=== PATIENT | female | born 1995 | race Two or more races ===

== ENCOUNTER 2024-08-10 03:49 | Emergency (ER) | payer MEDICAID, SELFPAY ==
[2024-08-10 03:50] VITALS: BMI 30.7
[2024-08-10 04:07] VITALS: BP 129/58; PULSE 70; RESP 18; TEMP 36.4; O2SAT 100
[2024-08-10] MEDS: ONDANSETRON INJ 2 MG/ML INJ 2 ML 4 MG IM (04:57)
--- NOTE | 2024-08-10 05:12 | PD.EDNV ---
Nausea/Vomit./Diarrhea-RME/HPI General Chief complaint: Abdominal Pain Stated complaint: EOTH/ VOMITING Time Seen by Provider: 08/10/24 04:19 Arrival date/time: 08/10/24 03:49 28F with no significant PMH presents to ED with N/V after drinking a lot of alcohol, most of which she threw up according to her and sister. Limitations: no limitations Related Data Allergies Allergy/AdvReac Type Severity Reaction Status Date / Time No Known Allergies Allergy Verified 08/10/24 03:50 Review of Systems Review of Systems Systems Reviewed: All systems reviewed, normal except as documented Constitutional Constitutional: Reports system reviewed and no additional complaints, except as documented, Denies fever(s) and Denies headache(s) ENT Ears, Nose, Mouth, and Throat: Denies disequilibrium and Denies headache(s) Cardiovascular Cardiovascular: Reports system reviewed and no additional complaints, except as documented, Denies chest pain and Denies dyspnea Respiratory Respiratory: Reports system reviewed and no additional complaints, except as documented, Denies cough and Denies dyspnea Gastrointestinal Gastrointestinal: Reports system reviewed and no additional complaints, except as documented, Reports as per HPI, Denies abdominal pain, Reports nausea and Reports vomiting Neurologic Neurologic: Reports system reviewed and no additional complaints, except as documented, Denies confusion, Denies disequilibrium and Denies headache(s) Psychiatric Psychiatric: Denies confusion Past Medical History Social History SMOKING STATUS: Current every day smoker ED Exam General Limitations: Present no limitations General appearance: Present alert and anxious Head Head exam: Present atraumatic Eye Eye exam: Present normal appearance, PERRL and EOMI ENT ENT exam: Present normal exam, normal oropharynx and mucous membranes moist Neck Neck exam: Present normal inspection, full ROM and trachea midline Chest Chest inspection: Present normal inspection and symmetric chest wall rise Respiratory Respiratory exam: Present normal lung sounds bilaterally Cardiovascular Cardiovascular exam: Present regular rate, normal rhythm and normal heart sounds Abdominal Exam Abdominal exam: Present soft and normal bowel sounds Extremities Exam Extremities exam: Present normal inspection and full ROM Back Exam Back exam: Present normal inspection and full ROM Neurological Exam Neurological exam: Present alert, oriented X3 and CN II-XII intact Psychiatric Psychiatric exam: Present normal affect and normal mood Skin Skin exam: Present warm, dry, intact and normal color Course Quality Measures none Orders Category Date Time Status Diazepam Inj [Valium Inj] Med 08/10/24 04:19 Discontinued 5 mg IM X1 ONE Ondansetron Inj [Zofran Inj] Med 08/10/24 04:19 Discontinued 4 mg IM X1 ONE Vital Signs Vital signs: Vital Signs Temperature 97.6 F 08/10/24 04:07 Pulse Rate 70 08/10/24 04:07 Respiratory Rate 18 08/10/24 04:07 Blood Pressure 129/58 L 08/10/24 04:07 Pulse Oximetry (%) 100 08/10/24 04:07 Oxygen Delivery Method Room Air 08/10/24 04:07 O2 at 100% on RA and WNLs Nausea/Vomiting/Diarrhea MDM Narrative MDM Narrative:: 28F with no significant PMH presents to ED with N/V after drinking a lot of alcohol, most of which she threw up according to her and sister. Physical exam reveals no ab tenderness. Patient is afebrile, alert, but anxious. Meds relieved symptoms. Patient data External records reviewed:: None Clinical information provided by:: patient Social determinants that could affect healthcare access:: none Patient has the following chronic illnesses:: none How is presenting disease/condition affected by chronic disease/condition?: no chronic disease Evaluation data The following diagnostics were reviewed and interpreted by me:: other (specify) (none) Lab and/or radiology exams considered but not ordered:: not ordered Interpretation Summary: n/a Medications / Prescriptions Medications / Prescriptions considered but not ordered:: ordered Medication administrations:: Medication Administration History Discontinued Medications Diazepam (Diazepam Inj 5 Mg/Ml Vial 2 Ml) 5 mg IM X1 ONE Stop: 08/10/24 04:20 Last Admin: 08/10/24 05:01 Dose: Not Given Documented By: IVAN Non-Admin Reason: Patient Refused Ondansetron HCl (Ondansetron Inj 2 Mg/Ml Inj 2 Ml) 4 mg IM X1 ONE; Protocol Stop: 08/10/24 04:20 Last Admin: 08/10/24 04:57 Dose: 4 mg Documented By: IVAN above Consultations Consultation(s) initiated? (list below): No Diagnosis Nausea Differential Diagnosis: traveler's diarrhea, food poisoning, gastroenteritis, clostridium difficile infection, drug-induced nausea and vomiting, dehydration and other (adverse effect of alcohol) Most likely diagnosis given after review of the tests above:: adverse effect of alcohol Admission Indicated Admission indicated?: not indicated Admission Request Was there a request for admission?: No Disposition Plan Disposition Plan: Discharge Discharge Attestation Discharge Attestation: The patient and all family members were given an opportunity to ask questions and understood the discharge instructions. Discharge instructions specifically effects, indications for sooner follow up or return to the emergency department, and the expected course of current diagnosis. Patient condition: Stable Discharge Plan Plan Patient Disposition: HOME (Self Care) Disposition Comment: Stable Prescriptions/Referrals Referrals: Que Castillo MD [Primary Care Provider] - In 1 week Problem List Clinical Impression: Adverse effect of alcohol Patient/Caregiver Discharge Instructions Additional Instructions: Please follow-up with PCP within 24-48 hours and return immediately if symptoms worsen. Stay hydrated. Print Language: Albanian Stand Alone Forms: Patient Portal Info Letter HANNY/ALEJANDRINA Supervising Physician ROSANNA Supervising Physician: Dr. Gonzales
== END 2024-08-10 05:10 | disposition home or self-care (01) ==
PROVIDERS: Emergency Provider Emergency Medicine; PCP Family Medicine
DX: R11.2 Nausea with vomiting, unspecified (principal)
CPT/HCPCS: 96372; J2405

== ENCOUNTER 2024-08-10 09:30 | Emergency (ER) | payer MEDICAID, SELFPAY ==
[2024-08-10 09:32] VITALS: PULSE 99; RESP 17; O2SAT 99; BMI 26.5
[2024-08-10 09:57] VITALS: BP 110/67; PULSE 88; RESP 18; TEMP 36.8; O2SAT 97
--- NOTE | 2024-08-10 10:12 | PD.EDRME ---
Rapid Medical Screening Exam RME Arrival date/time: 08/10/24 09:30 28-year-old female presents emergency department today stating she drank alcohol last night patient reports anxiety nausea vomiting Chief Complaint: Nausea/Vomiting/Diarrhea Time Seen by Provider: 08/10/24 09:34 Vital signs: Vital Signs Temperature 98.3 F 08/10/24 09:57 Pulse Rate 88 08/10/24 09:57 Respiratory Rate 18 08/10/24 09:57 Blood Pressure 110/67 08/10/24 09:57 Pulse Oximetry (%) 97 08/10/24 09:57 Oxygen Delivery Method Room Air 08/10/24 09:57
[2024-08-10 10:26] LABS: Basophils % (Auto) 0 % (0-2.5); Eosinophils % (Auto) 0 % (0-10); Hematocrit 36.1 % (36.0-46.0); Hemoglobin 12.6 g/dL (12.0-16.0); Immature Granulocytes % (Auto) 0 % (0-0); Immature Granulocytes Auto 0.02 Thou/mm3 (0.00-0.00); Lymphocytes # (Auto) 1.1 Thou/mm3 (1.0-4.8); Lymphocytes % (Auto) 13 % (10-50); Mean Corpuscular HGB Conc 34.9 g/dl (31.0-37.0); Mean Corpuscular Hemoglobin 29.6 pg (25.0-35.0); Mean Corpuscular Volume 85 fL (80-100); Monocytes # (Auto) 0.2 Thou/mm3 (0.0-0.8); Monocytes % (Auto) 3 % (0-12); Neutrophils # (Auto) 6.9 Thou/mm3 (1.8-7.7); Neutrophils % (Auto) 84 % (37-80); Nucleated Red Blood Cell % 0 /100 WBC (0); Platelet Count 231 Thou/mm3 (140-440); RDW Standard Deviation 37.7 fL (36.4-46.3); Red Blood Count 4.25 Miln/mm3 (4.00-5.20); White Blood Count 8.2 Thou/mm3 (3.6-11.0)
[2024-08-10 10:51] LABS: Alanine Aminotransferase 18 U/L (10-49); Albumin, Serum 4.8 gm/dL (3.5-5.0); Albumin/Globulin Ratio 1.7 (1.2-2.2); Alcohol, Blood Medical 77.2 mg/dL (0-10.0); Alkaline Phosphatase 54 U/L (46-116); Anion Gap 18 (7-16); Aspartate Amino Transferase 16 U/L (0-34); BUN/Creatinine Ratio 10 Ratio (12-20); Bilirubin,Total 1.2 mg/dL (0.3-1.2); Blood Urea Nitrogen 7 mg/dL (9-23); Calcium 9.3 mg/dL (8.3-10.6); Calcium (Corrected) 9.3 mg/dL (8.5-10.1); Carbon Dioxide 16.8 mMol/L (20.0-31.0); Chloride 106 mMol/L (98-107); Creatinine (Component) 0.7 mg/dL (0.6-1.3); Estimated Creatinine Clearance 108.8 mL/min (>60); Globulin 2.9 gm/dL (2.3-3.5); Glucose 116 mg/dL (74-106); Magnesium 1.9 mg/dL (1.6-2.6); Osmolality,Calculated 280 (275-295); Potassium 3.5 mMol/L (3.4-5.1); Sodium 141 mMol/L (136-145); Total Protein 7.7 gm/dL (5.7-8.2); eGFR > 60 See Note
[2024-08-10] MEDS: LORazepam 2 MG/ML VIAL 1 MG IM (10:52)
[2024-08-10] MEDS: ONDANSETRON ODT 4 MG TABRAP PO (10:52)
[2024-08-10 11:34] LABS: HCG,Qualitative Serum Negative
--- NOTE | 2024-08-10 12:44 | EDNOTE_ITS ---
Nausea/Vomit./Diarrhea-RME/HPI General Chief complaint: Nausea/Vomiting/Diarrhea Stated complaint: Vomiting, weak, anxious Time Seen by Provider: 08/10/24 09:34 Arrival date/time: 08/10/24 09:30 28-year-old female presents emergency department today stating she drank alcohol last night patient reports anxiety nausea vomiting Limitations: no limitations RME / HPI RME / HPI Narrative: 08/10/24 09:30 28-year-old female presents emergency department today stating she drank alcohol last night patient reports anxiety nausea vomiting Related Data Previous Rx's ?Medication ?Instructions ?Recorded metoclopramide HCl 10 mg tablet 10 mg PO Q6H PRN nause a and 08/10/24 (Reglan) vomiting #30 tabs ondansetron 4 mg disintegrating 4 mg PO Q8H PRN nausea and 08/10/24 tablet vomiting #10 tabs Allergies Allergy/AdvReac Type Severity Reaction Status Date / Time No Known Allergies Allergy Verified 08/10/24 03:50 Review of Systems Review of Systems Systems Reviewed: All systems reviewed, normal except as documented Constitutional Constitutional: Reports system reviewed and no additional complaints, except as documented, Denies fever(s) and Denies headache(s) Eyes Eyes: Reports system reviewed and no additional complaints, except as documented and Denies blurry vision ENT Ears, Nose, Mouth, and Throat: Reports system reviewed and no additional complaints, except as documented, Denies headache(s), Denies nasal congestion and Denies nasal discharge Cardiovascular Cardiovascular: Reports system reviewed and no additional complaints, except as documented, Denies chest pain and Denies dyspnea Respiratory Respiratory: Reports system reviewed and no additional complaints, except as documented, Denies chest congestion, Denies cough and Denies dyspnea Gastrointestinal Gastrointestinal: Reports system reviewed and no additional complaints, except as documented, Reports abdominal pain, Reports diarrhea and Reports nausea Integumentary/Breasts Skin/Breast: Reports system reviewed and no additional complaints, except as documented and Denies rash Neurologic Neurologic: Reports system reviewed and no additional complaints, except as documented, Reports as per HPI and Denies headache(s) Psychiatric Psychiatric: Reports system reviewed and no additional complaints, except as documented and Reports anxiety Past Medical History Social History SMOKING STATUS: Current every day smoker ED Exam General Limitations: Present no limitations General appearance: Present alert and in no apparent distress Head Head exam: Present atraumatic, normocephalic and normal inspection Eye Eye exam: Present normal appearance, PERRL and EOMI; Absent conjunctival injection ENT ENT exam: Present normal exam, normal oropharynx and mucous membranes moist Neck Neck exam: Present normal inspection, full ROM and trachea midline Chest Chest inspection: Present normal inspection and symmetric chest wall rise Respiratory Respiratory exam: Present normal lung sounds bilaterally; Absent respiratory distress, wheezes, stridor, accessory muscle use or prolonged expiratory phase Cardiovascular Cardiovascular exam: Present regular rate, normal rhythm and normal heart sounds Abdominal Exam Abdominal exam: Present soft and normal bowel sounds; Absent distention, tenderness, guarding, rebound or rigidity Extremities Exam Extremities exam: Present normal inspection and full ROM Back Exam Back exam: Present normal inspection and full ROM Neurological Exam Neurological exam: Present alert, oriented X3, CN II-XII intact, normal gait and reflexes normal; Absent motor sensory deficit Psychiatric Psychiatric exam: Present anxious Skin Skin exam: Present warm, dry, intact and normal color Course Quality Measures none Orders Category Date Time Status Alcohol, Blood Medical Stat Lab 08/10/24 10:19 Completed CBC Stat Lab 08/10/24 10:19 Completed CMP [Comprehensive Metabolic Panel] Stat Lab 08/10/24 10:19 Completed HCG,Qualitative Serum Stat Lab 08/10/24 10:19 Completed Mag [Magnesium] Stat Lab 08/10/24 10:19 Completed LORazepam [Ativan Inj] Med 08/10/24 10:06 Discontinued 1 mg IM X1 ONE Ondansetron Odt [Zofran Odt] Med 08/10/24 10:06 Discontinued 4 mg PO X1 ONE Vital Signs Vital signs: Vital Signs Temperature 98.3 F 08/10/24 09:57 Pulse Rate 88 08/10/24 09:57 Respiratory Rate 18 08/10/24 09:57 Blood Pressure 110/67 08/10/24 09:57 Pulse Oximetry (%) 97 08/10/24 09:57 Oxygen Delivery Method Room Air 08/10/24 09:57 O2 saturation 97% room air within normal limits Nausea/Vomiting/Diarrhea MDM Narrative MDM Narrative:: 28-year-old female presents emergency department today stating she drank alcohol last night patient reports anxiety nausea vomiting On exam patient where she is very anxious patient is hyperventilating Patient reports nausea Patient reports not an everyday drinker reports he drinks 7 drinks last night and since then she is not been feeling well Patient reports no headache or dizziness Lab work obtained no acute emergent findings noted Patient medicated here At time reevaluation patient reports he feels significantly better and would like to go home Patient discharged home in no distress to follow-up with primary care doctor in the next 24 to 48 hours and for any worsening symptoms to return to the ER immediately Patient data External records reviewed:: [facility] previous records Clinical information provided by:: patient Social determinants that could affect healthcare access:: none Patient has the following chronic illnesses:: None How is presenting disease/condition affected by chronic disease/condition?: no chronic disease Evaluation data The following diagnostics were reviewed and interpreted by me:: lab results and radiology exam(s) Lab and/or radiology exams considered but not ordered:: Labs obtained Interpretation Summary: Reviewed by me Medications / Prescriptions Medications / Prescriptions considered but not ordered:: Given Medication administrations:: Medication Administration History Discontinued Medications Lorazepam (Lorazepam 2 Mg/Ml Vial) 1 mg IM X1 ONE Stop: 08/10/24 10:07 Last Admin: 08/10/24 10:52 Dose: 1 mg Documented By: ED Ondansetron HCl (Ondansetron Odt 4 Mg Tabrap) 4 mg PO X1 ONE; Protocol Stop: 08/10/24 10:07 Last Admin: 08/10/24 10:52 Dose: 4 mg Documented By: ED Given Consultations Consultation(s) initiated? (list below): No Diagnosis Nausea Differential Diagnosis: traveler's diarrhea and food poisoning Most likely diagnosis given after review of the tests above:: URI Admission Indicated Admission indicated?: not indicated Admission Request Was there a request for admission?: No Disposition Plan Disposition Plan: Discharge Discharge Attestation Discharge Attestation: The patient and all family members were given an opportunity to ask questions and understood the discharge instructions. Discharge instructions specifically effects, indications for sooner follow up or return to the emergency department, and the expected course of current diagnosis. Patient condition: Stable Discharge Plan Plan Patient Disposition: HOME (Self Care) Disposition Comment: Stable Prescriptions/Referrals Prescriptions/Med Rec: New ondansetron 4 mg tablet,disintegrating 4 mg PO Q8H PRN (Reason: nausea and vomiting) Qty: 10 0RF metoclopramide HCl [Reglan] 10 mg tablet 10 mg PO Q6H PRN (Reason: nausea and vomiting) Qty: 30 0RF Referrals: No Primary/Family,Physician [Primary Care Provider] - In 1 week Problem List Clinical Impression: Adverse effect of alcohol, Nausea & vomiting, Anxiety Patient/Caregiver Discharge Instructions Education Materials: ED Vomiting (Adult) Additional Instructions: Please follow up with your primary care doctor in the next 24-48hrs for any worsening symptoms return here immediately Print Language: Amharic Stand Alone Forms: Gianna Award Info., Patient Portal Info Letter PA/UNIVERSITY RELATIONS VICE PRESIDENT Supervising Physician PA/UNIVERSITY RELATIONS VICE PRESIDENT Supervising Physician: Dr Schmid
== END 2024-08-10 12:55 | disposition home or self-care (01) ==
PROVIDERS: Nurse Practitioner Primary Care; Emergency Provider Emergency Medicine
DX: R11.2 Nausea with vomiting, unspecified (principal); F41.9 Anxiety disorder, unspecified
CPT/HCPCS: 36415; 80053; 80307; 80320; 83735; 84703; 85025; 96372; 99283; J2060; Q0162; G0480